=== PATIENT | female | born 2000 | race Two or more races ===

== ENCOUNTER 2021-08-11 05:46 | Inpatient (IN) | payer OTHER ==
[~2021-08-11] VITALS: Ht 160 cm; Wt 68.9 kg
[2021-08-11] MEDS ORDERED: PRENATAL TABLE1 EAC1 PO (06:07)
== END 2021-08-13 11:46 | disposition home or self-care (01) | DRG 788 ==
LOC: LDR 05:46 → OB/GYN 19:22
PROVIDERS: ADMIT Obstetrics & Gynecology; ATTEND Obstetrics & Gynecology
PROC: 4A1HXCZ Monitoring of Products of Conception, Cardiac Rate, External Approach (ICD-10-PCS; 2021-08-11)
PROC: 10D00Z1 Extraction of Products of Conception, Low, Open Approach (ICD-10-PCS; principal; 2021-08-11 15:00)
DX: O62.0 Primary inadequate contractions (principal); Z20.822 Contact with and (suspected) exposure to COVID-19; Z3A.39 39 weeks gestation of pregnancy; Z37.0 Single live birth

== ENCOUNTER 2024-07-27 20:45 | Outpatient (CLI) | payer OTHER ==
[2024-07-27 20:03] VITALS: BP 123/73
[~2024-07-27 20:45] MED LIST: PRENATAL TABLE1 EAC1 PO
[2024-07-27 23:05] VITALS: BP 101/64
[2024-07-28 03:10] VITALS: BP 95/55; O2SAT 100
[2024-07-28 07:13] VITALS: BP 102/65
[2024-07-28 09:49] VITALS: BP 102/65
== END 2024-07-28 09:49 | disposition home or self-care (01) ==
LOC: OBS/DEL 20:45
PROVIDERS: ATTEND Obstetrics & Gynecology Maternal & Fetal Medicine
DX: O26.892 Other specified pregnancy related conditions, second trimester (principal); R10.2 Pelvic and perineal pain; Z3A.20 20 weeks gestation of pregnancy

== ENCOUNTER 2024-09-30 16:13 | Inpatient (IN) | payer OTHER ==
[~2024-09-30] VITALS: Ht 162.6 cm; Wt 63.0 kg
[2024-09-30 15:22] VITALS: BP 98/58
[2024-09-30] MEDS ORDERED: MAGNESIUM SULFATE IN WATER 4 GM/100 ML PIGGYBACK IV NR (16:45)
[2024-09-30] MEDS ORDERED: MAGNESIUM SULFATE IN WATER 500 ML IV SCH (16:45)
[2024-09-30] MEDS ORDERED: RINGERS SOLUTION,LACTATED 1,000 ML IV SCH (16:45)
[2024-09-30] MEDS ORDERED: BETAMETHASONE ACETATE,SOD PHOS 30 MG/5 ML ML IM NR (16:45)
[2024-09-30 16:49] LABS: BASO % 0.2 % (0.1-1.2); EOS # 0.23 (0.04-0.54); EOS % 2.3 % (0.7-7.0); HEMATOCRIT 30.6 % (34.1-44.9); HEMOGLOBIN 10.6 g/dL (11.2-15.7); LYMPH # 1.63 (1.18-3.74); LYMPH % 16.3 % (19.3-53.1); NEUT # 7.39 (1.56-6.13); NEUT % 73.9 % (34.0-71.1); PLATELET COUNT 224 K/uL (163-369); RED BLOOD COUNT 3.78 M/uL (3.93-5.22)
[2024-09-30 16:50] LABS: URINE APPEARANCE Turbid; URINE BILIRRUBIN Negative (NEGATIVE); URINE BLOOD Negative; URINE COLOR Yellow; URINE GLUCOSE Negative (NEGATIVE); URINE KETONE Negative (NEGATIVE); URINE LEUKOCYTE Moderate; URINE NITRATE Negative; URINE PROTEIN Trace (NEGATIVE)
[2024-09-30 16:53] LABS: URINE BACTERIA 5419.8 uL (0.0-1933); URINE RBC 9.5 uL (0.0-20.8); URINE WBC 98.1 uL (0.0-23.2)
[2024-09-30 17:14] LABS: INR 0.99; PARTIAL THROMBOPLASTIN TIME 25.6 SECONDS (22.0-34.0); PROTHROMBIN TIME 10.8 SECONDS (9.0-11.5)
[2024-09-30 17:18] LABS: URINE CAST 0.29 uL (0.0-1.40); URINE CRYSTALS MODERATE /HPF
[2024-09-30 17:21] LABS: ALBUMIN 2.6 gm/dL (3.4-5.0); BILIRUBIN TOTAL 0.39 mg/dL (0.3-1.2); CALCIUM 8.5 mg/dL (8.5-10.1); CREATININE SERUM 0.34 mg/dL (0.55-1.02); GFR 236.55; GLOBULINA 3.6 G/DL (2.4-3.5); POTASSIUM 4.1 mEq/L (3.5-5.1); TOTAL PROTEIN 6.2 gm/dL (6.4-8.2)
[2024-09-30 20:00] VITALS: BP 95/55
[2024-09-30 23:34] VITALS: BP 98/57
[2024-10-01 04:01] VITALS: BP 94/56
[2024-10-01 06:39] VITALS: BP 90/54; O2SAT 98
[2024-10-01 12:00] VITALS: BP 92/55
[2024-10-01 15:19] VITALS: BP 93/57
[2024-10-01] MEDS ORDERED: BETAMETHASONE ACETATE,SOD PHOS 30 MG/5 ML ML IM NR (16:45)
[2024-10-01 18:50] VITALS: BP 96/61; O2SAT 98
[2024-10-01 23:44] VITALS: BP 94/54
[2024-10-02 03:58] VITALS: BP 90/50
[2024-10-02 06:27] VITALS: BP 91/58; O2SAT 98
== END 2024-10-02 09:45 | disposition home or self-care (01) | DRG 833 ==
LOC: LDR 16:13
PROVIDERS: ADMIT Obstetrics & Gynecology Gynecology; ATTEND Obstetrics & Gynecology Gynecology
PROC: 4A1HXCZ Monitoring of Products of Conception, Cardiac Rate, External Approach (ICD-10-PCS; principal; 2024-09-30)
DX: O60.03 Preterm labor without delivery, third trimester (principal); Z3A.29 29 weeks gestation of pregnancy; O34.211 Maternal care for low transverse scar from previous cesarean delivery

== ENCOUNTER 2024-12-04 08:45 | Inpatient (IN) | payer OTHER ==
[~2024-12-04] VITALS: Ht 160 cm; Wt 3.2 kg
[2024-12-04 10:02] LABS: BASO % 0.2 % (0.1-1.2); EOS # 0.21 (0.04-0.54); EOS % 2.5 % (0.7-7.0); LYMPH # 1.56 (1.18-3.74); LYMPH % 18.7 % (19.3-53.1); MEAN PLATELET VOLUME 12.30 fl (9.4-12.4); MONO # 0.46 (0.24-0.82); MONO % 5.5 % (4.7-12.5); NEUT # 6.05 (1.56-6.13); NEUT % 72.7 % (34.0-71.1); RED CELL DISTRIBUTION WIDTH 15.9 % (11.6-14.4)
[2024-12-04 10:43] LABS: INR 0.97
[2024-12-04 10:45] LABS: ALT/SGPT 14.0 U/L (12-78); AST/SGOT 16.0 U/L (15-37); BILIRUBIN TOTAL 0.37 mg/dL (0.3-1.2); BUN CREA RATIO 16.0 (7.0-25.0); CREATININE SERUM 0.5 mg/dL (0.55-1.02); GFR 151.58; GLOBULINA 4.5 G/DL (2.4-3.5); GLUCOSE FASTING 90.0 mg/dL (65-100); OSMOLALITY SERUM 275.0 MOSM/KG (275-295)
[2024-12-06] MEDS ORDERED: IRON325 MG PO (12:17)
[2024-12-06 12:19] VITALS: BP 111/70
[2024-12-06] MEDS ORDERED: CITRIC ACID/SODIUM CITRATE 30 ML BLIST.PACK PO NR (16:00)
[2024-12-06] MEDS ORDERED: OXYTOCIN 10 UNITS/ML VIAL IV ONE (16:00)
[2024-12-06] MEDS ORDERED: ERYTHROMYCIN BASE OPHT 1GM EACH TUBE OP ONE (16:00)
[2024-12-06] MEDS ORDERED: CEFAZOLIN SODIUM 1,000 MG VIAL IV ONE (16:00)
[2024-12-06] MEDS ORDERED: OXYTOCIN 1,000 ML IV SCH (17:45)
[2024-12-06] MEDS ORDERED: MORPHINE SULFATE 4 MG/ML CARTRIDGE IV PRN (17:45)
[2024-12-06] MEDS ORDERED: MORPHINE SULFATE 4 MG/ML VIAL IV ONE ×2 (19:00→19:55)
[2024-12-06 21:08] VITALS: BP 108/71
[2024-12-06 23:48] VITALS: BP 108/71
[2024-12-07 08:00] VITALS: BP 109/71
[2024-12-07] MEDS ORDERED: IRON FUM,PS/FOLIC ACID/VITC/B3 1 CAP CAPSULE PO NR (10:00)
[2024-12-07] MEDS ORDERED: IRON FUM,PS/FOLIC ACID/VITC/B3 1 CAP CAPSULE PO SCH (11:01)
[2024-12-07 11:14] LABS: BASO % 0.2 % (0.1-1.2); EOS # 0.01 (0.04-0.54); EOS % 0.1 % (0.7-7.0); LYMPH # 1.16 (1.18-3.74); LYMPH % 11.0 % (19.3-53.1); MEAN PLATELET VOLUME 12.10 fl (9.4-12.4); MONO # 0.65 (0.24-0.82); MONO % 6.2 % (4.7-12.5); NEUT # 8.68 (1.56-6.13); NEUT % 82.2 % (34.0-71.1); RED CELL DISTRIBUTION WIDTH 15.2 % (11.6-14.4)
[2024-12-07 16:30] VITALS: BP 98/68
[2024-12-08 01:49] VITALS: BP 101/68
[2024-12-08] MEDS ORDERED: OxyCODONE HCL 5 MG TABLET (ROXICODONE) PO PRN (06:00)
[2024-12-08 08:42] VITALS: BP 100/67
[2024-12-08] MEDS ORDERED: IRON FUM,PS/FOLIC ACID/VITC/B3 1 CAP CAPSULE PO SCH (09:00)
== END 2024-12-08 14:11 | disposition home or self-care (01) | DRG 785 ==
LOC: OB/GYN 12-06 08:45 → O/R 12-06 12:44 → OB/GYN 12-06 18:55
PROVIDERS: ADMIT Obstetrics & Gynecology; ATTEND Obstetrics & Gynecology
PROC: 0UB70ZZ Excision of Bilateral Fallopian Tubes, Open Approach (ICD-10-PCS; 2024-12-06)
PROC: 0DNW0ZZ Release Peritoneum, Open Approach (ICD-10-PCS; 2024-12-06)
PROC: 4A1HXCZ Monitoring of Products of Conception, Cardiac Rate, External Approach (ICD-10-PCS; 2024-12-06)
PROC: 10D00Z1 Extraction of Products of Conception, Low, Open Approach (ICD-10-PCS; principal; 2024-12-06 14:00)
DX: O99.892 Other specified diseases and conditions complicating childbirth (principal); N73.6 Female pelvic peritoneal adhesions (postinfective); O34.211 Maternal care for low transverse scar from previous cesarean delivery; Z3A.39 39 weeks gestation of pregnancy; Z37.0 Single live birth; Z30.2 Encounter for sterilization

== ENCOUNTER 2024-12-04 14:11 | Outpatient (CLI) | payer OTHER ==
[2024-12-04 14:34] VITALS: BP 109/73
== END 2024-12-04 15:31 | disposition home or self-care (01) ==
LOC: NST 14:11
PROVIDERS: ATTEND Obstetrics & Gynecology Maternal & Fetal Medicine
DX: Z34.83 Encounter for supervision of other normal pregnancy, third trimester (principal)